=== PATIENT | female | born 1980 | race Caucasian/White ===

== ENCOUNTER 2016-09-27 20:01 | Inpatient (IN) | payer OTHER ==
--- NOTE | ~2016-09-27 | PN ---
Unit #: [id number] #: [id number] Patient: VENECIA LLOYD [id number] [facility] [address] [place] [address] [id number] MR#: [id number] NAME: VENECIA LLOYD ROOM: P207 Age: 36 Sex: F Admission Date: 09/27/2016 : 1980 Attending Physician: Georgi Riddle M.D. Admitting Physician: Georgi Riddle M.D. Primary Care Physician: Primary Care Physician Patty AMATO PROGRESS NOTES DATE 09/29/2016 DISCUSSION The patient continues to complain of some nausea and discomfort from alcohol withdrawal. She is expressing some possible (1) __ residential chemical dependence treatment when seen today, and I will ask the social security specialist to see her regarding this. Dictated by... Georgi Riddle M.D. CB/mara TD: 09/29/2016 14:44 JOB #: [id number] LM PROGRESS NOTES Page 1 of 1 X Georgi Riddle MD PROGRESS NOTE
--- NOTE | ~2016-09-27 | PN ---
Unit #: [id number] #: [id number] Patient: VENECIA LLOYD [id number] [facility] [address] [place] [address] [id number] I MR#: [id number] NAME: VENECIA LLOYD ROOM: P207 Age: 36 Sex: F Admission Date: 09/27/2016 : 1980 Attending Physician: Georgi Riddle M.D. Admitting Physician: Georgi Riddle M.D. Primary Care Physician: Primary Care Physician Patty AMATO PROGRESS NOTES DATE 09/30/2016 DISCUSSION The patient continues to complain of some symptoms of alcohol withdrawal, specifically GI in nature. She is expressing interest in residential chemical dependence treatment during today's interview but will likely go home tomorrow and pursue that treatment option from home. Dictated by... Georgi Riddle M.D. CB/mara TD: 09/30/2016 13:08 JOB #: [id number] LM KRUEGER NOTES Page 1 of 1 X Georgi Riddle MD PROGRESS NOTE
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
--- NOTE | ~2016-09-27 | HP ---
Unit #: [id number] #: [id number] Patient: VENECIA LLOYD [id number] [place] [address] [id number] MR#: [id number] NAME: VENECIA LLOYD ROOM: P207 Age: 36 Sex: F Admission Date: 09/27/2016 : 1980 Attending Physician: Georgi Riddle M.D. Admitting Physician: Georgi Riddle M.D. Primary Care Physician: Primary Care Physician No HISTORY AND PHYSICAL HISTORY OF PRESENT ILLNESS Venecia is a 36 year old admitted to [address] [place] [address] because of her continued abuse of alcohol. She has had other admissions to this facility for the same. PAST MEDICAL HISTORY 1. History of alcohol abuse. 2. Hypothyroidism. 3. IBS. PAST SURGICAL HISTORY Nothing reported. ALLERGIES No known drug allergies. SOCIAL HISTORY She does not smoke. Drinks a fifth of liquor on a daily basis. Denies illicit drug use. FAMILY HISTORY Medically noncontributory. REVIEW OF SYSTEMS CONSTITUTIONAL: No fever or chills. HEENT: Denies any sore throat, ear pain or runny nose. CARDIOVASCULAR: Denies chest pain, irregular heart rhythm or palpitations. CHEST: Denies shortness of breath or cough. No hemoptysis. GASTROINTESTINAL: Denies nausea, vomiting, diarrhea or chronic constipation. ENDOCRINE: Denies history of increased thirst or urination. No recent significant weight loss or gain. GENITOURINARY: Denies dysuria, frequency, or hematuria. SKIN: Denies any rashes. HEMATOLOGIC: Denies history of increased bleeding or bruising. MUSCULOSKELETAL: Denies any hot, swollen joints. No generalized muscle pain. NEUROLOGIC: Denies problems with vision or speech. No frequent, severe headaches. No numbness, tingling or weakness in any extremities. Denies loss of bladder or bowel control. CURRENT MEDICATIONS 1. Detox protocol. 2. BuSpar 10 mg t.i.d. Unit #: [id number] #: [id number] Patient: VENECIA LLOYD 3. Synthroid 0.05 mg daily. 4. Effexor XR 75 mg daily. PHYSICAL EXAMINATION GENERAL: Alert, well-nourished, in no apparent distress. VITAL SIGNS: Blood pressure 112/82, heart rate 80, respirations 16, temperature 98.6. WEIGHT: 169. HEIGHT: 5 feet 10 inches. SKIN: Warm and dry without rash or lesion. HEENT: Normocephalic. TMs not viewed. Oral and nasal passages clear. Conjunctivae clear. PERRLA. EOMs intact. NECK: Supple without lymphadenopathy or thyromegaly. HEART: Regular rate and rhythm without murmur. LUNGS: Clear. ABDOMEN: Soft, nontender. : Not done. EXTREMITIES: No evidence of cyanosis, clubbing or edema. Moves all without focal deficit. NEUROLOGICAL: Grossly within normal limits. Cranial Nerves: II: Visual mojica are intact. III, IV AND : Extraocular movements are intact. Pupils are equal, round and reactive to light. V: Facial sensation is grossly normal. VII: Facial movements and expression are normal. VIII: Auditory acuity grossly intact. IX, X: Uvula is midline. Phonation is normal. XI: Patient shrugs shoulders and turns head normally. XII: Tongue protrudes in the midline. Sensory and Motor Function: Sensory and motor sensation is grossly normal. Motor: moves all extremities well. Coordination: Gait is normal. Deep Tendon Reflexes: Intact. IMPRESSION Psychiatric admission. RECOMMENDATIONS PSYCHIATRIC: Per psychiatrist. MEDICAL: See no contraindications to participate in facility's activities. MEDICAL PROGNOSIS Good. MEDICAL CONDITION Stable. Dictated by... Jessica Gaviria PSilvaASilva-Royce. for Bruce Apple/tricia TD: 09/28/2016 16:57 JOB #: [id number] Unit #: [id number] #: [id number] Patient: VENECIA LLOYD HISTORY AND PHYSICAL Page 1 of 1 X Jessica Gaviria HISTORY AND PHYSICAL
--- NOTE | ~2016-09-27 | DS ---
Unit #: [id number] #: [id number] Patient: VENECIA LLOYD [id number] [facility] [address] [place] [address] [id number] I MR#: [id number] NAME: VENECIA LLOYD ROOM: [facility] Age: 36 Sex: F Admission Date: 09/27/2016 : 1980 Discharge Date: 10/01/2016 Attending Physician: Georgi Riddle M.D. Primary Care Physician: Primary Care Physician No DISCHARGE SUMMARY REASON FOR ADMISSION The patient is a 36-year-old white female, admitted to the [address] [place] [address] unit for alcohol detox and treatment of depression and anxiety. HOSPITAL COURSE The patient was admitted to the [address] [place] [address] unit, placed on suicide precautions. Routine detoxification protocol was initiated, and the patient was continued on previously prescribed medications including Effexor XR, Minipress, Synthroid, and Desyrel. BuSpar 10 mg three times a day was added to address the patient's complaints of anxiety. Her detox was an uneventful one, hence the patient was much brighter when seen on 10/01/2016. She requested discharge on that date, stated that she was interested in pursuing residential chemical dependency treatment, stated that she would attempt to make arrangements on her own outside the hospital. Discharge was ordered. FINAL DIAGNOSES Alcohol use disorder, dysthymic disorder, and hypothyroidism. DISPOSITION ON DISCHARGE The patient is discharged on the following medications; Effexor XR 225 mg daily for depression, Minipress 2 mg at bedtime for nightmares, Synthroid 0.05 mg daily for hypothyroidism, BuSpar 10 mg three times daily for anxiety, Desyrel 50 mg at bedtime p.r.n. insomnia. DISCHARGE INSTRUCTIONS No dietary or physical restrictions were placed upon the patient at the time of discharge. FOLLOWUP Followup will take place through the auspices of community mental health resources in the [place], [place] area. PROGNOSIS The patient's prognosis is considered fair. Dictated by... Georgi Riddle M.D. GENARO/audra TD: 10/01/2016 12:56 Unit #: [id number] #: [id number] Patient: VENECIA LLOYD JOB #: [id number] DISCHARGE SUMMARY Page 1 of 1 X Georgi Riddle MD DISCHARGE SUMMARY
[2016-09-28 10:15] LABS: BASOPHIL% 1.1 % (0-2.5); EOSINOPHIL# 0.1 X10e3 (0-0.7); EOSINOPHIL% 1.9 % (0.0-7.0); HEMATOCRIT 32.8 % (35.0-45.0); HEMOGLOBIN 10.9 gm/dL (12.0-16.0); LYMPHOCYTE% 43.4 % (17.0-45.0); MEAN CELL VOLUME 91.3 FL (83-96); MEAN CORPUSCULAR HEMOGLOBIN 30.3 PG (28-34); MEAN CORPUSCULAR HGB CONC 33.2 g/dL (30-36); MEAN PLATELET VOLUME 9.3 FL (6.5-11.5); MONOCYTE# 0.4 X10e3 (0-1.0); MONOCYTE% 9.5 % (3.0-12.0); NEUTROPHIL% 44.1 % (40-75); PLATELET COUNT 148 X10e3 (140-420); RED BLOOD COUNT 3.59 X10e (3.90-5.30); RED CELL DISTRIBUTION WIDTH 18.3 % (11.0-15.5); WHITE BLOOD COUNT 4.5 X10e3 (4.0-10.5)
[2016-09-28 10:18] LABS: DIFF IND NO
[2016-09-28 10:28] LABS: ALBUMIN SERUM 3.1 g/dL (3.5-5.0); ALKALINE PHOSPHATASE 33 U/L (32-92); ALT (SGPT) 77 U/L (10-40); AST (SGOT) 185 U/L (10-42); BILIRUBIN,TOTAL 2.2 mg/dL (0.2-2.0); CALCIUM SERUM 8.4 mg/dL (8.4-10.2); CARBON DIOXIDE 28 mmol/L (22-31); CHLORIDE 101 mmol/L (100-111); CREATININE SERUM 0.6 mg/dL (0.6-1.4); GLOM FILT RATE Estimated 116.4 mL/min (>60); GLUCOSE FASTING 90 mg/dL (70-110); POTASSIUM 3.3 mmol/L (3.5-5.1); PROTEIN TOTAL SERUM 5.9 g/dL (6.0-8.3); SODIUM 140 mmol/L (135-145)
[2016-09-28 10:29] LABS: BLOOD UREA NITROGEN <5 mg/dL (9-23); BUN/CREATININE RATIO 8.33
[2016-10-01 11:59] LABS: URINE APPEARANCE CLOUDY; URINE BILIRUBIN NEG (NEG); URINE BLOOD NEG (NEG); URINE COLOR DK YELLOW; URINE GLUCOSE NEG (NEG); URINE KETONE NEG (NEG); URINE LEUKOCYTE ESTERASE 3+ (NEG); URINE NITRATE NEG (NEG); URINE PROTEIN NEG (NEG); URINE SPECIFIC GRAVITY 1.011 (1.003-1.035)
[2016-10-01 12:02] LABS: URINE BACTERIA AUWI 2+ (NEGATIVE); URINE SQUAMOUS EPITHELIAL CELL FEW /[HPF]; UWBCS1 AUWI 25-50 (0-5)
[2016-10-01 12:23] LABS: AMPHETAMINE NEG (NEG); BARBITURATES NEG (NEG); BENZODIAZEPINES POS (NEG); COCAINE NEG (NEG); MARIJUANA NEG (NEG); OPIATES NEG (NEG); TRICYCLIC ANTIDEPRESSANTS NEG (NEG); U METHADONE NEG (NEG)
== END 2016-10-01 15:08 | disposition home or self-care (01) | DRG 885 ==
LOC: P2S 23:18
PROVIDERS: Specialist
PROC: HZ2ZZZZ Detoxification Services for Substance Abuse Treatment (ICD-10-PCS; principal; 2016-09-27)
DX: F33.1 Major depressive disorder, recurrent, moderate (principal); E03.9 Hypothyroidism, unspecified; F10.10 Alcohol abuse, uncomplicated
CPT/HCPCS: 80053; 80307; 81003; 85025; 86592